=== PATIENT | female | born 1965 | race Caucasian/White ===

== ENCOUNTER → 2018-05-22 | Outpatient (REF) | payer OTHER ==
[2018-05-24 14:49] LABS: HPV HYBRID CAPTURE II Negative (Negative)
== END ==
LOC: M SFHCWAGY 09:06
DX: Z01.419 Encounter for gynecological examination (general) (routine) without abnormal findings (principal)

== ENCOUNTER → 2018-05-22 | Outpatient (CLI) | payer OTHER | LOC: M WHC 08:37 | DX: Z12.31 Encounter for screening mammogram for malignant neoplasm of breast (principal); N60.31 Fibrosclerosis of right breast; N60.32 Fibrosclerosis of left breast | CPT/HCPCS: 77067 ==

== ENCOUNTER → 2019-05-23 | Outpatient (CLI) | payer OTHER ==
--- NOTE | 2019-05-23 11:06 | REPMRS ---
Patient History The patient states she had a clinical breast exam in 05/2019. Patient is postmenopausal. Family history of colorectal cancer at age 70 in paternal aunt, breast cancer at age 63 in maternal aunt. No Hormone Replacement Therapy Digital Woman Screen Mammo: May 23, 2019 - Exam #: [id number] Bilateral CC and MLO view(s) were taken. Technologist: Maria Elena Moon, Technologist Prior study comparison: May 22, 2018, bilateral digital woman screen mammo performed at [facility]. May 19, 2017, digital woman screen mammo performed at [facility]. May 11, 2016, digital woman screen mammo performed at [facility]. FINDINGS: The breast tissue is heterogeneously dense. This may lower the sensitivity of mammography. There is a moderate amount of heterogeneously dense fibroglandular tissue which is fairly symmetric. There is no interval development of dominant mass, architectural distortion, or grouped microcalcification typical of malignancy. There has been no change in the appearance of the mammogram from the prior studies. 3-D tomosynthesis shows no additional findings. Assessment: BI-RADS/ACR category 1 mammogram. Negative Mammogram. Recommendation Routine screening mammogram of both breasts in 1 year (for women over age 40). This patient's Lifetime Breast Cancer RIsk is estimated at 14.5 %. This mammogram was interpreted with the aid of an FDA-approved computer-aided dectection system. Electronically Signed By: Erasto Hurtado MD 05/23/19 [id number]
== END ==
LOC: M WHC 08:29
PROVIDERS: ATTEND Nurse Practitioner Family
DX: Z12.31 Encounter for screening mammogram for malignant neoplasm of breast (principal)

== ENCOUNTER → 2020-05-26 | Outpatient (CLI) | payer OTHER ==
--- NOTE | 2020-05-26 10:12 | REPMRS ---
Patient History The patient states she had a clinical breast exam in May 2020. Family history of colorectal cancer at age 70 in paternal aunt, breast cancer at age 63 in maternal aunt. No Hormone Replacement Therapy Digital Woman Screen Mammo: May 26, 2020 - Exam #: [id number] Bilateral CC and MLO view(s) were taken. Technologist: Marilou Garzon Technologist Prior study comparison: May 23, 2019, bilateral digital woman screen mammo performed at [facility]. May 22, 2018, bilateral digital woman screen mammo performed at [facility]. May 19, 2017, digital woman screen mammo performed at [facility]. FINDINGS: There are scattered fibroglandular densities. The Volpara volumetric breast density category is:B. There has been no change in the appearance of the mammogram from the prior studies. There is a mild amount of scattered fibroglandular density which is fairly symmetric. There is no interval development of dominant mass, architectural distortion, or grouped microcalcification suggestive of malignancy. 3-D tomosynthesis shows no additional findings. Assessment: BI-RADS/ACR category 1 mammogram. Negative Mammogram. Recommendation Routine screening mammogram of both breasts in 1 year (for women over age 40). This patient's Lifetime Breast Cancer Risk is estimated at 14.2 %. This mammogram was interpreted with the aid of an FDA-approved computer-aided dectection system. Electronically Signed By: Erasto Hurtado MD 05/26/20 [id number]
== END ==
LOC: M WHC 08:43
PROVIDERS: ATTEND Nurse Practitioner Family
DX: Z12.31 Encounter for screening mammogram for malignant neoplasm of breast (principal)

== ENCOUNTER → 2021-08-05 | Outpatient (REF) | payer OTHER | LOC: M LAB REF 11:45 | PROVIDERS: ATTEND Podiatrist | DX: M67.472 Ganglion, left ankle and foot (principal) ==

== ENCOUNTER → 2021-09-21 | Outpatient (CLI) | payer OTHER ==
[~2021-09-21] MED LIST: LEVO88TA3 PO
== END ==
LOC: M LABSMTC 09:07
PROVIDERS: ATTEND Anesthesiology
DX: Z20.828 Contact with and (suspected) exposure to other viral communicable diseases (principal); Z11.59 Encounter for screening for other viral diseases

== ENCOUNTER 2021-09-25 06:10 | Day surgery (SDC) | payer OTHER ==
[~2021-09-25] VITALS: Ht 160 cm; Wt 72.2 kg
[~2021-09-25 06:10] MED LIST changes: +LIDOCAINE 1% MDV 20ML VIAL SQ PRN; +LR 1,000 ML IV ONE; +ceFAZolin SOD 2 GM in IV 1 EA IV ONE
[2021-09-25] MEDS ORDERED: VITA500C3 PO (06:43)
[2021-09-25] MEDS ORDERED: VITA200031 PO (07:06)
[2021-09-25] MEDS ORDERED: CENT1TAB PO (07:06)
[2021-09-25] MEDS ORDERED: VITA500T17 PO (07:06)
[2021-09-25] MEDS ORDERED: CALC600T60 PO (07:06)
[2021-09-25] MEDS ORDERED: ZINC1TAB2 PO (07:06)
[2021-09-25] MEDS ORDERED: fentaNYL 100 MCG/2 ML INJECTION As Ordered ONE (07:07)
[2021-09-25] MEDS ORDERED: MIDAZOLAM INJ 2MG/2ML VIAL (J2250 PER 1MG) As Ordered ONE (07:08)
[2021-09-25] MEDS ORDERED: LIDOCAINE 2% 100MG/5ML SDV (FOR ANES.) As Ordered ONE (07:08)
[2021-09-25] MEDS ORDERED: ONDANSETRON 4MG/2ML VIAL As Ordered ONE (07:08)
[2021-09-25] MEDS ORDERED: propofoL 200 MG/20 ML VIAL As Ordered ONE ×2 (07:08→08:38)
[2021-09-25] MEDS ORDERED: dexameTHASONE 4 MG/ML 1ML VIAL (J1100 PER 1MG) As Ordered ONE (07:10)
[2021-09-25] MEDS ORDERED: GENTAMICIN SULF 80MG/2ML VIAL As Ordered ONE (07:10)
[2021-09-25] MEDS ORDERED: BUPIVACAINE HCL 0.5% 10ML VIAL As Ordered ONE ×2 (07:10→07:15)
[2021-09-25] MEDS ORDERED: LIDOCAINE 2% MDV 20ML VIAL As Ordered ONE (07:11)
[2021-09-25] MEDS ORDERED: ACETAMINOPHEN 1000MG 100ML IV BTL (OFIRMEV) (J0131 PER 10MG) As Ordered ONE (07:47)
[2021-09-25] MEDS ORDERED: KETOROLAC 60MG 2ML VIAL As Ordered ONE (07:59)
[2021-09-25] MEDS ORDERED: MEPERIDINE INJ 25 MG/ML VIAL (J2175) IV PRN (09:30)
[2021-09-25] MEDS ORDERED: fentaNYL 100 MCG/2 ML INJECTION IV PRN (09:30)
[2021-09-25] MEDS ORDERED: ONDANSETRON 4MG/2ML VIAL IV PRN (09:30)
[2021-09-25] MEDS ORDERED: oxyCODONE 5MG TAB PO PRN (09:30)
[2021-09-25] MEDS ORDERED: LR 1,000 ML IV SCH (09:30)
[2021-09-25 10:20] VITALS: BP 131/80
== END 2021-09-25 10:37 | disposition home or self-care (01) ==
LOC: M SDC 06:10
PROVIDERS: ATTEND Podiatrist
DX: M20.42 Other hammer toe(s) (acquired), left foot (principal); M20.12 Hallux valgus (acquired), left foot; M67.472 Ganglion, left ankle and foot; M79.672 Pain in left foot; E03.9 Hypothyroidism, unspecified; Z79.899 Other long term (current) drug therapy; F17.218 Nicotine dependence, cigarettes, with other nicotine-induced disorders; Z88.5 Allergy status to narcotic agent
CPT/HCPCS: 28039; 28285; 28296; 28308; 73630; 88300; 88305; 97116; C1713; J0131; J0690; J1100; J1580; J1885; J2250; J2405; J3010

== ENCOUNTER → 2022-11-10 | Outpatient (CLI) | payer OTHER ==
[~2022-11-10] MED LIST changes: +CALC600T60 PO; +CENT1TAB PO; -LIDOCAINE 1% MDV 20ML VIAL SQ PRN; -LR 1,000 ML IV ONE; +VITA200031 PO; +VITA500C3 PO; +VITA500T17 PO; +ZINC1TAB2 PO; -ceFAZolin SOD 2 GM in IV 1 EA IV ONE
[2022-11-10 09:22] VITALS: BP 130/82
== END ==
LOC: M WHCPRO 07:27
PROVIDERS: ATTEND Surgery
DX: R92.8 Other abnormal and inconclusive findings on diagnostic imaging of breast (principal)

== ENCOUNTER → 2023-01-31 | Outpatient (REF) | payer OTHER | LOC: M SFHCWAGY 17:54 | PROVIDERS: ATTEND Nurse Practitioner Family | DX: Z12.4 Encounter for screening for malignant neoplasm of cervix (principal) | CPT/HCPCS: 87624; G0123 ==

== ENCOUNTER → 2023-04-21 | Outpatient (CLI) | payer OTHER | LOC: M WHC 07:30 | PROVIDERS: ATTEND Surgery | DX: R92.8 Other abnormal and inconclusive findings on diagnostic imaging of breast (principal) | CPT/HCPCS: 76642; 77065; G0279 ==

== ENCOUNTER → 2024-02-15 | Outpatient (REF) | payer OTHER ==
[2024-02-17 15:37] LABS: HPV APTIMA Not Detected (Not Detected)
== END ==
LOC: M SFHCWAGY 12:18
PROVIDERS: ATTEND Nurse Practitioner Family
DX: Z01.419 Encounter for gynecological examination (general) (routine) without abnormal findings (principal); Z77.9 Other contact with and (suspected) exposures hazardous to health
CPT/HCPCS: 87624; G0123